=== PATIENT | female | born 1960 | race Two or more races ===

== ENCOUNTER 2022-02-19 08:19 | Outpatient (CLI) | payer OTHER | END 2022-02-19 08:36 | disposition home or self-care (01) | LOC: MAMO-SONO 08:19 | PROVIDERS: ATTEND Specialist | DX: N60.01 Solitary cyst of right breast (principal); N60.02 Solitary cyst of left breast; Z12.31 Encounter for screening mammogram for malignant neoplasm of breast ==

== ENCOUNTER 2022-05-20 07:44 | Outpatient (CLI) | payer OTHER | END 2022-05-20 08:02 | disposition home or self-care (01) | LOC: SONOGRAMA 07:44 | PROVIDERS: ATTEND Specialist | DX: N83.209 Unspecified ovarian cyst, unspecified side (principal) ==

== ENCOUNTER 2023-07-11 12:26 | Emergency (ER) | payer OTHER ==
[~2023-07-11] VITALS: Ht 170.2 cm; Wt 70.3 kg
[2023-07-11] MEDS ORDERED: MOTRIN IB200 M1 PO (13:32)
[2023-07-11] MEDS ORDERED: NORFLEX100MG PO (13:32)
[2023-07-11] MEDS ORDERED: ZANAFLEX2 M1 PO (15:20)
[2023-07-11] MEDS ORDERED: DICLOFENAC POTA50 MG PO (15:20)
== END 2023-07-11 15:50 | disposition home or self-care (01) ==
LOC: ER 12:27
DX: M54.2 Cervicalgia (principal); M62.838 Other muscle spasm

== ENCOUNTER 2024-04-02 17:08 | Emergency (ER) | payer OTHER ==
[~2024-04-02] VITALS: Ht 170.2 cm; Wt 66.2 kg
[~2024-04-02 17:08] MED LIST: DICLOFENAC POTA50 MG PO; MOTRIN IB200 M1 PO; NORFLEX100MG PO; ZANAFLEX2 M1 PO
[2024-04-02] MEDS ORDERED: KETOROLAC TROMETHAMINE 30 MG VIAL IM STA (18:40)
[2024-04-02] MEDS ORDERED: ORPHENADRINE CITRATE 30 MG/ML AMPUL IM STA (18:40)
== END 2024-04-02 19:01 | disposition home or self-care (01) ==
LOC: ER 17:10
DX: M54.32 Sciatica, left side (principal)